=== PATIENT | female | born 1990 | race Two or more races ===

== ENCOUNTER 2016-07-17 23:56 | Emergency (ER) | payer MEDICAID | END 2016-07-18 00:47 | disposition home or self-care (01) | LOC: ED 23:56 | DX: S61.211A Laceration without foreign body of left index finger without damage to nail, initial encounter (principal); W26.0XXA Contact with knife, initial encounter; Y93.9 Activity, unspecified; Y92.9 Unspecified place or not applicable; Y99.9 Unspecified external cause status ==